=== PATIENT | female | born 1940 | race Caucasian/White ===

== ENCOUNTER 2017-08-03 12:11 | Emergency (ER) | payer MEDICAID, MEDICARE, OTHER ==
[~2017-08-03] VITALS: Ht 165.1 cm; Wt 70.0 kg
[~2017-08-03 12:11] MED LIST: AUGM500T7 PO; DILA2TAB4 PO; GABA100C4 PO; GLIM2TAB PO; LEVEINJ SC; LOVA1TAB47 PO; METO50CR PO; PANT20 PO; WARF5TAB PO
[2017-08-03 12:14] VITALS: BP 137/84; PULSE 109; RESP 14; TEMP 98.1; O2SAT 97
[2017-08-03 14:24] LABS: BLOOD, URINE NEG (NEG); GLUCOSE,URINE 1000 mg/dL (NEG); KETONE, URINE NEG (NEG); NITRITE,URINE NEG (NEG); SQUAMOUS EPITHELIAL CELL URINE <1 /hpf (0-5); URINE COLOR YELLOW (YELLW/STRAW)
[2017-08-03 14:26] LABS: COMMENT (UR) CATH-CULT NOT IND; CULTURE IF INDICATED CATH CULTURE NOT IND
--- NOTE | 2017-08-03 15:30 | PD ---
HPI Chief Complaint: Complaint Time Seen by Provider: 14:33 Travel History International Travel<30 days: No Contact w/Intl Traveler<30days: No Traveled to known affect area: No History of Present Illness HPI 76-year-old female presents to the emergency room for evaluation of incontinence for the past week. Patient states she has had mild, stress incontinence for a while where she will be curative she cannot get to the bathroom quick enough but over the past week it has progressed to entire bladder emptying. States yesterday and today upon standing she emptied her bladder. Days yesterday evening she experienced pins and needles in her bilateral legs but does not currently have the symptoms. Denies any bowel incontinence. Patient has history of diabetes and bilateral BKA. She denies any recent back pain, trauma, or injury. PFSH Past Medical History Blood Disorders: No Cardiovascular Problems: Yes Coronary Artery Disease: Yes Diabetes: Yes Patient Takes Glucophage: No Diminished Hearing: No Hypertension: Yes Immune Disorder: No Musculoskeletal: No Neurologic: No Psychiatric: No Respiratory: Yes Past Surgical History Appendectomy: Yes Cardiac Surgery: Yes (cabbage 9 years ago,) Section: Yes (X1) Coronary Artery Bypass Graft: Yes (X 5 VESSELS) Hysterectomy: Yes Thoracic Surgery: Yes Other Surgery: Yes Social History Alcohol Use: No Tobacco Use: No Substance Use: No Allergies-Medications (Allergen,Severity, Reaction): Coded Allergies: belladonna alkaloids (Unverified Adverse Reaction, Severe, EYES DIALATE, ) Reported Meds & Prescriptions Reported Meds & Active Scripts Active Reported Augmentin (Amoxicillin/Clavulanate Potassium) 500 Mg Tab 500 Mg PO Q8H Dilaudid (Hydromorphone HCl) 2 Mg Tab 2 Mg PO Q3H PRN Levemir Flexpen (Insulin Detemir) Flexpen Inj 10 Units SC HS Metoprolol Succinate Er (Metoprolol Succinate) 50 Mg Tab 25 Mg PO BID Glimepiride 2 Mg Tab 4 Mg PO BID Lovastatin 20 Mg Tab 40 Mg PO HS Protonix (Pantoprazole Sodium) 20 Mg Tabdr 20 Mg PO DAILY Gabapentin 100 Mg Cap 200 Mg PO TID Warfarin Sodium 5 Mg Tab 5 Mg PO DAILY@1600 Review of Systems Except as stated in HPI: all other systems reviewed are Neg Physical Exam Narrative GENERAL: Well-nourished, well-developed female in no acute distress. Afebrile. Ambulatory. SKIN: Focused skin assessment warm/dry. HEAD: Normocephalic. EYES: No scleral icterus. No injection or drainage. NECK: Supple, trachea midline. No JVD or lymphadenopathy. CARDIOVASCULAR: Regular rate and rhythm without murmurs, gallops, or rubs. RESPIRATORY: Breath sounds equal bilaterally. No accessory muscle use. GASTROINTESTINAL: Abdomen soft, non-tender, nondistended. BACK: No CVA tenderness. No rash. No point tenderness on palpation of the spine. Data Data Last Documented VS Vital Signs Date Time Temp Pulse Resp B/P (MAP) Pulse Ox O2 Delivery O2 Flow Rate FiO2 08/03/17 14:04 87 18 08/03/17 13:59 08/03/17 12:14 98.1 97 Room Air Orders Orders Urinalysis - C+S If Indicated (08/03/17 13:40) Cath For Specimen (08/03/17 13:40) Complete Blood Count With Diff (08/03/17 15:16) Basic Metabolic Panel (Bmp) (08/03/17 15:16) Mri L Spine W/O Contrast (08/03/17 ) Labs Laboratory Tests Test 08/03/17 14:12 08/03/17 16:20 Urine Color YELLOW Urine Turbidity CLEAR Urine pH 5.0 Urine Specific [place] 1.012 Urine Protein NEG mg/dL Urine Glucose (UA) 1000 mg/dL Urine Ketones NEG mg/dL Urine Occult Blood NEG Urine Nitrite NEG Urine Bilirubin NEG Urine Urobilinogen LESS THAN 2.0 MG/DL Urine Leukocyte Esterase NEG Urine RBC 1 /hpf Urine WBC 1 /hpf Urine Squamous Epithelial Cells <1 /hpf Microscopic Urinalysis Comment CATH-CULT NOT IND White Blood Count 9.3 TH/MM3 Red Blood Count 4.31 MIL/MM3 Hemoglobin 14.3 GM/DL Hematocrit 42.0 % Mean Corpuscular Volume 97.5 FL Mean Corpuscular Hemoglobin 33.2 PG Mean Corpuscular Hemoglobin Concent 34.1 % Red Cell Distribution Width 12.8 % Platelet Count 279 TH/MM3 Mean Platelet Volume 7.9 FL Neutrophils (%) (Auto) 60.2 % Lymphocytes (%) (Auto) 32.2 % Monocytes (%) (Auto) 6.0 % Eosinophils (%) (Auto) 1.0 % Basophils (%) (Auto) 0.6 % Neutrophils # (Auto) 5.6 TH/MM3 Lymphocytes # (Auto) 3.0 TH/MM3 Monocytes # (Auto) 0.6 TH/MM3 Eosinophils # (Auto) 0.1 TH/MM3 Basophils # (Auto) 0.1 TH/MM3 CBC Comment DIFF FINAL Differential Comment Blood Urea Nitrogen 28 MG/DL Creatinine 1.06 MG/DL Random Glucose 300 MG/DL Calcium Level 9.2 MG/DL Sodium Level 134 MEQ/L Potassium Level 4.3 MEQ/L Chloride Level 100 MEQ/L Carbon Dioxide Level 26.9 MEQ/L Anion Gap 7 MEQ/L Estimat Glomerular Filtration Rate 51 ML/MIN MDM Medical Decision Making Medical Screen Exam Complete: Yes Emergency Medical Condition: Yes Medical Record Reviewed: Yes Differential Diagnosis Neurogenic bladder, stress incontinence, overflow incontinence, cauda equina syndrome, urinary tract infection Narrative Course 76-year-old female presents to the emergency room for evaluation of urinary incontinence for the past several days. Patient states she stands up and loses complete control of her bladder. She denies any bowel symptoms but has associated bilateral lower extremity paresthesias. 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 Given history, lumbar MRI was ordered. CBC and BMP are completely unremarkable other than some evidence of mild dehydration. UA is non -concerning for UTI. MRI shows chronic changes but no acute cord compression or evidence of cauda equina syndrome. Vital signs stable. Patient was reassured. Likely stress incontinence, urgency incontinence, overflow incontinence, or some mixture. Patient was told to follow up with her PCP for outpatient referral to urology or PHOTOVOLTAIC PANEL INSTALLER. Told to return for worsening symptoms. She understands and agrees to plan. Diagnosis Primary Impression: Urinary incontinence Qualified Codes: N39.46 - Mixed incontinence Referrals: Mixed Signal Design Engineer Primary Care Physician Urologist Additional Instructions: Rest and drink plenty of fluids. Follow-up with a primary care physician for outpatient referral to urologist or PHOTOVOLTAIC PANEL INSTALLER for bladder stress test. Return to the emergency room for worsening symptoms. Disposition: 01 DISCHARGE HOME Condition: Stable Aby Elizabeth Aug 03, 2017 15:30
--- NOTE | 2017-08-03 16:32 | PD ---
Physical Exam Date Seen by Provider: Aug 03, 2017 Narrative This patient presents complaining with urinary incontinence. She denies fecal incontinence. She denies back pain or leg weakness. Data Data Last Documented VS Vital Signs Date Time Temp Pulse Resp B/P (MAP) Pulse Ox O2 Delivery O2 Flow Rate FiO2 08/03/17 14:04 87 18 08/03/17 13:59 08/03/17 12:14 98.1 97 Room Air Orders Orders Urinalysis - C+S If Indicated (08/03/17 13:40) Cath For Specimen (08/03/17 13:40) Mri L Spine W&W/O Contrast (08/03/17 ) Complete Blood Count With Diff (08/03/17 15:16) Basic Metabolic Panel (Bmp) (08/03/17 15:16) Labs Laboratory Tests Test 08/03/17 14:12 Urine Color YELLOW Urine Turbidity CLEAR Urine pH 5.0 Urine Specific [place] 1.012 Urine Protein NEG mg/dL Urine Glucose (UA) 1000 mg/dL Urine Ketones NEG mg/dL Urine Occult Blood NEG Urine Nitrite NEG Urine Bilirubin NEG Urine Urobilinogen LESS THAN 2.0 MG/DL Urine Leukocyte Esterase NEG Urine RBC 1 /hpf Urine WBC 1 /hpf Urine Squamous Epithelial Cells <1 /hpf Microscopic Urinalysis Comment CATH-CULT NOT IND MDM Supervised Visit with BISHNU: Yes Narrative Course I, Dr. Ordoñez, have reviewed the advance practice practitioner's documentation and am in agreement, met with the patient face to face, made the diagnosis, and the medical decision making was done by me. *My assessment and Findings: Patient is awake and alert. She is sitting in a wheelchair. She speaks Nepali so her H&P was assisted by family member. She does not appear to be in any distress. Please see Aby Elizabeth PA-C's note for results of laboratory and radiographic evaluation, ED course, final diagnosis and disposition Disposition: 01 DISCHARGE HOME Condition: Stable Jeny Ordoñez MD Aug 03, 2017 16:32
[2017-08-03 16:47] LABS: AUTOMATED NEUTROPHIL # 5.6 TH/MM3 (1.8-7.7); BASOPHIL # 0.1 TH/MM3 (0-0.2); BASOPHIL % 0.6 % (0.0-2.0); EOSINOPHIL # 0.1 TH/MM3 (0-0.4); HEMO FLAGS DIFF FINAL; LYMPH % 32.2 % (9.0-44.0); MEAN CELL VOLUME 97.5 FL (80.0-100.0); MEAN CORPUSCULAR HEMOGLOBIN 33.2 PG (27.0-34.0); MEAN CORPUSCULAR HGB CONC 34.1 % (32.0-36.0); NEUT % 60.2 % (16.0-70.0); PLATELET COUNT 279 TH/MM3 (150-450); RED BLOOD COUNT 4.31 MIL/MM3 (4.00-5.30); RED CELL DISTRIBUTION WIDTH 12.8 % (11.6-17.2); WHITE BLOOD COUNT 9.3 TH/MM3 (4.0-11.0)
[2017-08-03 17:02] LABS: BICARBONATE 26.9 MEQ/L (21.0-32.0); POTASSIUM 4.3 MEQ/L (3.5-5.1)
--- NOTE | 2017-08-03 18:55 | RADRPT ---
EXAM DATE/TIME: 08/03/2017 17:50 [facility] COMPARISON: No previous studies available for comparison. INDICATIONS : Incontinence. MEDICAL HISTORY : Diabetes mellitus type 2. SURGICAL HISTORY : CABG Bilateral above the knee amputations. ENCOUNTER: Subsequent ACUITY: 2 day PAIN SCORE: 0/10 LOCATION: back. TECHNIQUE: Multiplanar multisequence MRI of the lumbar spine was performed without contrast. FINDINGS: The most caudal appearing lumbar vertebra is numbered as L5. VERTEBRAE: Homogeneous signal. Normal alignment. CONUS: Normal level and configuration. T12-L1: The thecal sac has a normal diameter. No evidence of disc bulge or protrusion. The neural foramina are patent bilaterally. L1-L2: The thecal sac has a normal diameter. No evidence of disc bulge or protrusion. The neural foramina are patent bilaterally. L2-L3: The thecal sac has a normal diameter. No evidence of disc bulge or protrusion. The neural foramina are patent bilaterally. L3-L4: There is slight bulging of the disc without significant stenosis. The thecal sac has a normal diamete r. The neural foramina are patent bilaterally. There is mild facet hypertrophy. L4-L5: The thecal sac has a normal diameter. No evidence of disc bulge or protrusion. The neural foramina are patent bilaterally. There is facet hypertrophy. L5-S1: The disc demonstrates decreased signal. There is minimal bulging. Significant stenosis is not seen. T here is facet hypertrophy. The thecal sac has a normal diameter. The neural foramina are patent bila terally. CONCLUSION: 1. Minimal bulging at the L3-L4 and L5-S1 levels without significant stenosis. 2. Facet hypertrophy at the L3-L4 through L5-S1 levels. Etienne Santacruz MD on August 03, 2017 at 18:50 Board Certified Radiologist. This report was verified electronically.
[2017-08-03 19:40] VITALS: BP 129/83; PULSE 98; RESP 16; O2SAT 96
== END 2017-08-03 19:50 | disposition home or self-care (01) ==
LOC: NEPD 12:11
DX: N39.46 Mixed incontinence (principal); I10 Essential (primary) hypertension; I25.10 Atherosclerotic heart disease of native coronary artery without angina pectoris; Z95.1 Presence of aortocoronary bypass graft; E11.9 Type 2 diabetes mellitus without complications
CPT/HCPCS: 72148; 80048; 81001; 85025; 99284

== ENCOUNTER 2017-08-06 23:20 | Emergency (ER) | payer MEDICARE ==
[2017-08-06 23:21] VITALS: BP 135/95; PULSE 91; RESP 18; TEMP 97.9; O2SAT 100
[2017-08-06] MEDS ORDERED: SPIR25 PO (23:40)
[2017-08-06] MEDS ORDERED: LOVA40TA PO (23:40)
[2017-08-06] MEDS ORDERED: INSU1INJ5 SQ (23:40)
[2017-08-06] MEDS ORDERED: XARE20TA PO (23:40)
[2017-08-07 00:21] LABS: BLOOD, URINE NEG (NEG); GLUCOSE,URINE NEG (NEG); KETONE, URINE NEG (NEG); NITRITE,URINE NEG (NEG); URINE COLOR LIGHT-YELLOW (YELLW/STRAW)
[2017-08-07 00:44] LABS: WBC, URINE 0-2 /hpf (0-5)
[2017-08-07 00:45] LABS: COMMENT (UR) CATH-CULT NOT IND; CULTURE IF INDICATED CATH CULTURE NOT IND; SQUAMOUS EPITHELIAL CELL URINE 0-5 /hpf (0-5)
[2017-08-07] MEDS ORDERED: ACETAMINOPHEN/HYDROcodone 325 MG/10 MG TAB PO ONE (01:00)
[2017-08-07] MEDS ORDERED: HYDR-2376 PO ×2 (01:00→01:02)
--- NOTE | 2017-08-07 01:01 | PD ---
HPI Chief Complaint: Complaint Time Seen by Provider: 23:37 Travel History International Travel<30 days: No Contact w/Intl Traveler<30days: No Traveled to known affect area: No History of Present Illness HPI The patient 76 years old. She describes a burning sensation in the region of the genitalia uncomfortable with urinary incontinence. She was seen here just 2 days prior and evaluation including lumbar spine MRI was performed which is unremarkable. Patient describes a pulling sensation. It's very uncomfortable for her. She has follow-up on Tuesday, 2 days from today with her primary care provider to establish outpatient urogynecology follow-up. She's had no fever nausea vomiting diarrhea or constipation. She's had no abnormal vaginal bleeding or discharge. No numbness tingling or weakness or fecal incontinence reported. PFSH Past Medical History Hx Anticoagulant Therapy: Yes (XERALTO) Blood Disorders: No Cardiovascular Problems: Yes Coronary Artery Disease: Yes Diabetes: Yes Patient Takes Glucophage: No Diminished Hearing: No Hypertension: Yes Immune Disorder: No Musculoskeletal: No Neurologic: No Psychiatric: No Respiratory: Yes Influenza Vaccination: Yes Past Surgical History Appendectomy: Yes Cardiac Surgery: Yes (cabbage 9 years ago,) Section: Yes (X1) Coronary Artery Bypass Graft: Yes (X 5 VESSELS) Hysterectomy: Yes Thoracic Surgery: Yes Other Surgery: Yes Social History Alcohol Use: No Tobacco Use: No Substance Use: No Allergies-Medications (Allergen,Severity, Reaction): Coded Allergies: belladonna alkaloids (Unverified Adverse Reaction, Severe, EYES DIALATE, 08/06/17) Reported Meds & Prescriptions Reported Meds & Active Scripts Active Hydrocodone-Acetaminophen 7.5-300 Mg Tab 1 Tab PO Q6H PRN Reported Xarelto (Rivaroxaban) 20 Mg Tab Unknown Dose PO DAILY Lovastatin 40 Mg Tab 40 Mg PO HS Aldactone (Spironolactone) 25 Mg Tab 25 Mg PO BIDPC Levemir Flextouch Pen Inj (Insulin Detemir) 300 unit/3 ML Pen 10 Units SQ DAILY Review of Systems Except as stated in HPI: all other systems reviewed are Neg General / Constitutional: No: Fever Physical Exam Narrative GENERAL: 76-year-old female pleasant well-nourished well-developed NAD SKIN: Warm and dry. HEAD: Atraumatic. Normocephalic. EYES: Pupils equal and round. No scleral icterus. No injection or drainage. ENT: No nasal bleeding or discharge. Mucous membranes pink and moist. NECK: Trachea midline. No JVD. CARDIOVASCULAR: Regular rate and rhythm. RESPIRATORY: No accessory muscle use. Clear to auscultation. Breath sounds equal bilaterally. GASTROINTESTINAL: Abdomen soft, non-tender, nondistended. Hepatic and splenic margins not palpable. MUSCULOSKELETAL: Bilateral BKA's. : Possible bladder prolapse, no protruding mass however urethral meatus is visualized. No blood or discharge. NEUROLOGICAL: Awake and alert. No obvious cranial nerve deficits. Motor grossly within normal limits. Five out of 5 muscle strength in the arms and legs. Normal speech. Data Data Last Documented VS Vital Signs Date Time Temp Pulse Resp B/P (MAP) Pulse Ox O2 Delivery O2 Flow Rate FiO2 08/06/17 23:21 97.9 91 18 135/95 (108) 100 Room Air VS reviewed Orders Orders Urinalysis - C+S If Indicated (08/06/17 23:54) ^ Straight Catheter (08/06/17 23:54) Acetamin-Hydrocod 325-10 Mg ([place] 10-32 (08/07/17 01:00) Labs Laboratory Tests Test 08/06/17 23:50 Urine Color LIGHT-YELLOW Urine Turbidity CLEAR Urine pH 5.0 Urine Specific [place] 1.005 Urine Protein NEG mg/dL Urine Glucose (UA) NEG mg/dL Urine Ketones NEG mg/dL Urine Occult Blood NEG Urine Nitrite NEG Urine Bilirubin NEG Urine Urobilinogen LESS THAN 2.0 MG/DL Urine Leukocyte Esterase NEG Urine WBC 0-2 /hpf Urine Squamous Epithelial Cells 0-5 /hpf Microscopic Urinalysis Comment CATH-CULT NOT IND MDM Medical Decision Making Medical Screen Exam Complete: Yes Emergency Medical Condition: Yes Medical Record Reviewed: Yes Differential Diagnosis Uterine prolapse, UTI, bladder prolapse, neoplasia Narrative Course Presentation overall fairly benign. Pt comfortable and ready for discharge. No UTI. Follow up with uro-apprentice/lineman most appropriate. Pt discharged during downtime follow up with [facility] city driver discussed with patient and contact info given offline pt and family with follow up with referral return precautions discussed, patient and family verbalized agreement with plan Diagnosis Primary Impression: Pelvic pain in female Med/Other Pt SpecificInfo: Prescription(s) given Scripts Hydrocodone-Acetaminophen (Hydrocodone-Acetaminophen) 7.5-300 Mg Tab 1 TAB PO Q6H Y for PAIN SCALE 6 TO 10, #12 TAB 0 Refills Prov: Heath Zaldivar MD 08/07/17 Disposition: 01 DISCHARGE HOME Condition: Stable Heath Zaldivar MD Aug 07, 2017 01:01
== END 2017-08-07 01:50 | disposition home or self-care (01) ==
LOC: NEPE 23:20
DX: R10.2 Pelvic and perineal pain (principal); I25.10 Atherosclerotic heart disease of native coronary artery without angina pectoris; E11.9 Type 2 diabetes mellitus without complications; I10 Essential (primary) hypertension; Z95.1 Presence of aortocoronary bypass graft; Z79.01 Long term (current) use of anticoagulants; Z79.4 Long term (current) use of insulin
CPT/HCPCS: 81001; 99283